=== PATIENT | male | born 1965 | race Caucasian/White ===

== ENCOUNTER 2023-03-20 12:35 | Outpatient (CLI) | payer OTHER, SELFPAY ==
[2023-03-20 11:37] LABS: Abs Immature Grans 0.06 10^3/uL (0.0-0.06); Absolute Basophil Count 0.07 10^3/uL (0.0-0.2); Absolute Eosinophil Count 0.09 10^3/uL (0.0-0.7); Absolute Lymphocyte Count 3.01 10^3/uL (1.2-3.4); Absolute Monocyte Count 0.97 10^3/uL (0.1-0.8); Basophils % 0.6; Eosinophils % 0.8; HCT 51.9 % (40.0-50.0); HGB 17.1 g/dL (13.5-17.5); Immature Grans % 0.5; Lymphocytes % 25.8; MCH 27.9 pg (27.0-33.0); MCHC 32.9 % (32.0-36.0); MCV 85 fL (80-95); MPV 9.7 fL (8.0-11.0); Monocytes % 8.3; Platelet Count 301 10^3/uL (130-400); RBC 6.12 10^6/uL (4.36-5.78); RDW 14.3 % (11.8-14.1); RDW-SD 43.8 fL; WBC 11.65 10^3/uL (4.4-10.8)
[2023-03-20 11:41] LABS: Absolute Neutrophil Count 7.46 10^3/uL (1.2-6.7)
[2023-03-20 11:53] LABS: Hemoglobin A1C 8.3 % (<5.7)
[2023-03-20 11:57] LABS: ALT 24 U/L (16-63); AST 11 U/L (15-37); Albumin 3.4 g/dL (3.4-5.0); Alkaline Phosphatase 99 U/L (46-116); Anion Gap 9.1 mmol/L (3-11); BUN 10 mg/dL (7-18); Bilirubin, Total 0.3 mg/dL (0.2-1.0); CO2 26.9 mmol/L (21.0-32.0); CREATININE 0.8 mg/dL (0.70-1.30); Calcium 9.4 mg/dL (8.5-10.1); Chloride 100 mmol/L (98-107); Estimated GFR 103.87 (mL/min/1.73m2); Glucose 179 mg/dL (74-106); Potassium 4.1 mmol/L (3.5-5.1); Sodium 136 mmol/L (136-145); Total Protein 7.9 g/dL (6.4-8.2)
[2023-03-20 12:12] LABS: Diff Comment Diff Reviewed; RBC Morphology Normal
== END 2023-03-20 12:36 | disposition home or self-care (01) ==
LOC: LBO 12:37
PROVIDERS: PCP Internal Medicine Hematology & Oncology; Visit Provider Internal Medicine Hematology & Oncology
DX: C32.9 Malignant neoplasm of larynx, unspecified (principal); E11.9 Type 2 diabetes mellitus without complications
CPT/HCPCS: 36415; 80053; 83036; 83735; 85025

== ENCOUNTER 2023-03-30 16:28 | Outpatient (REF) | payer OTHER, SELFPAY ==
[2023-03-30 16:37] LABS: Abs Immature Grans 0.08 10^3/uL (0.0-0.06); Absolute Eosinophil Count 0.08 10^3/uL (0.0-0.7); Absolute Lymphocyte Count 2.32 10^3/uL (1.2-3.4); Basophils % 0.3; Eosinophils % 0.5; HCT 52.4 % (40.0-50.0); HGB 17.4 g/dL (13.5-17.5); Immature Grans % 0.5; Lymphocytes % 14.7; MCH 28.3 pg (27.0-33.0); MCHC 33.2 % (32.0-36.0); MCV 85 fL (80-95); MPV 10.6 fL (8.0-11.0); Monocytes % 8.2; Neutrophils % 75.8; Platelet Count 303 10^3/uL (130-400); RBC 6.15 10^6/uL (4.36-5.78); RDW 14.5 % (11.8-14.1); RDW-SD 44.7 fL; WBC 15.81 10^3/uL (4.4-10.8)
[2023-03-30 16:38] LABS: Absolute Basophil Count 0.05 10^3/uL (0.0-0.2); Absolute Neutrophil Count 11.98 10^3/uL (1.2-6.7)
[2023-03-30 16:49] LABS: ALT 24 U/L (16-63); AST 9 U/L (15-37); Albumin 3.3 g/dL (3.4-5.0); Alkaline Phosphatase 94 U/L (46-116); Anion Gap 11.6 mmol/L (3-11); BUN 18 mg/dL (7-18); Bilirubin, Total 0.3 mg/dL (0.2-1.0); CO2 21.4 mmol/L (21.0-32.0); CREATININE 0.9 mg/dL (0.70-1.30); Calcium 8.9 mg/dL (8.5-10.1); Chloride 99 mmol/L (98-107); Diff Comment Diff Reviewed; Estimated GFR 100.24 (mL/min/1.73m2); Glucose 389 mg/dL (74-106); Potassium 3.6 mmol/L (3.5-5.1); RBC Morphology Normal; Sodium 132 mmol/L (136-145); Total Protein 7.7 g/dL (6.4-8.2)
[2023-03-30 17:01] LABS: Hemoglobin A1C 8.5 % (<5.7)
== END 2023-03-30 16:29 | disposition home or self-care (01) ==
LOC: LBN 16:28
PROVIDERS: PCP Internal Medicine Hematology & Oncology; Visit Provider Internal Medicine Hematology & Oncology
DX: C32.9 Malignant neoplasm of larynx, unspecified (principal); E11.9 Type 2 diabetes mellitus without complications
CPT/HCPCS: 80053; 83036; 83735; 85025

== ENCOUNTER 2023-05-04 02:57 | Outpatient (RCR) | payer OTHER, SELFPAY ==
[2023-04-06] MEDS: Normal Saline Flush 10 ML SYR IVP (09:27)
[2023-04-06 10:03] LABS: Abs Immature Grans 0.04 10^3/uL (0.0-0.06); Absolute Basophil Count 0.02 10^3/uL (0.0-0.2); Absolute Eosinophil Count 0.04 10^3/uL (0.0-0.7); Absolute Lymphocyte Count 1.76 10^3/uL (1.2-3.4); Absolute Monocyte Count 0.94 10^3/uL (0.1-0.8); Basophils % 0.2; Eosinophils % 0.4; HCT 52.7 % (40.0-50.0); HGB 17.3 g/dL (13.5-17.5); Immature Grans % 0.4; Lymphocytes % 16.2; MCH 28.1 pg (27.0-33.0); MCHC 32.8 % (32.0-36.0); MCV 86 fL (80-95); MPV 10.4 fL (8.0-11.0); Monocytes % 8.6; Neutrophils % 74.2; Platelet Count 259 10^3/uL (130-400); RBC 6.16 10^6/uL (4.36-5.78); WBC 10.89 10^3/uL (4.4-10.8)
[2023-04-06 10:06] LABS: Absolute Neutrophil Count 8.08 10^3/uL (1.2-6.7)
[2023-04-06 10:27] LABS: ALT 39 U/L (16-63); AST 12 U/L (15-37); Albumin 3.1 g/dL (3.4-5.0); Alkaline Phosphatase 84 U/L (46-116); Anion Gap 8.5 mmol/L (3-11); BUN 25 mg/dL (7-18); Bilirubin, Total 0.3 mg/dL (0.2-1.0); CO2 26.5 mmol/L (21.0-32.0); CREATININE 0.9 mg/dL (0.70-1.30); Chloride 99 mmol/L (98-107); Estimated GFR 100.24 (mL/min/1.73m2); Glucose 220 mg/dL (74-106); Magnesium 1.7 mg/dL (1.8-2.4); Potassium 3.9 mmol/L (3.5-5.1); Sodium 134 mmol/L (136-145); Total Protein 7.2 g/dL (6.4-8.2)
[2023-04-13] MEDS: Normal Saline Flush 10 ML SYR IVP (14:57)
[2023-04-13 15:33] LABS: ALT 38 U/L (16-63); AST 17 U/L (15-37); Albumin 3.3 g/dL (3.4-5.0); Alkaline Phosphatase 107 U/L (46-116); Anion Gap 10.5 mmol/L (3-11); BUN 14 mg/dL (7-18); Bilirubin, Total 0.2 mg/dL (0.2-1.0); CO2 24.5 mmol/L (21.0-32.0); CREATININE 0.8 mg/dL (0.70-1.30); Calcium 9.1 mg/dL (8.5-10.1); Chloride 100 mmol/L (98-107); Estimated GFR 103.87 (mL/min/1.73m2); Glucose 240 mg/dL (74-106); Magnesium 1.9 mg/dL (1.8-2.4); Potassium 4.2 mmol/L (3.5-5.1); Sodium 135 mmol/L (136-145); Total Protein 7.9 g/dL (6.4-8.2)
[2023-04-13 15:39] LABS: Abs Immature Grans 0.04 10^3/uL (0.0-0.06); Absolute Basophil Count 0.04 10^3/uL (0.0-0.2); Absolute Eosinophil Count 0.06 10^3/uL (0.0-0.7); Absolute Lymphocyte Count 1.37 10^3/uL (1.2-3.4); Absolute Neutrophil Count 8.29 10^3/uL (1.2-6.7); Basophils % 0.4; Eosinophils % 0.6; HCT 52.3 % (40.0-50.0); HGB 17.2 g/dL (13.5-17.5); Immature Grans % 0.4; Lymphocytes % 12.9; MCHC 32.9 % (32.0-36.0); MCV 85 fL (80-95); MPV 9.2 fL (8.0-11.0); Monocytes % 7.5; Neutrophils % 78.2; Platelet Count 203 10^3/uL (130-400); RBC 6.14 10^6/uL (4.36-5.78); RDW 14.6 % (11.8-14.1)
[2023-04-13 15:40] LABS: Diff Comment Diff Reviewed
[2023-04-13 15:41] LABS: RBC Morphology Normal
[2023-04-20] MEDS: Normal Saline Flush 10 ML SYR IVP (14:00)
[2023-04-20 14:05] LABS: Abs Immature Grans 0.04 10^3/uL (0.0-0.06); Absolute Basophil Count 0.02 10^3/uL (0.0-0.2); Absolute Eosinophil Count 0.08 10^3/uL (0.0-0.7); Absolute Lymphocyte Count 1.32 10^3/uL (1.2-3.4); Absolute Monocyte Count 0.95 10^3/uL (0.1-0.8); Absolute Neutrophil Count 5.52 10^3/uL (1.2-6.7); Basophils % 0.3; Immature Grans % 0.5; Lymphocytes % 16.6; MCH 28.2 pg (27.0-33.0); MCHC 33.3 % (32.0-36.0); MCV 85 fL (80-95); MPV 9.1 fL (8.0-11.0); Neutrophils % 69.6; Platelet Count 233 10^3/uL (130-400); RDW 14.2 % (11.8-14.1); RDW-SD 43.4 fL; WBC 7.93 10^3/uL (4.4-10.8)
[2023-04-20 14:07] LABS: RBC 6.03 10^6/uL (4.36-5.78)
[2023-04-20 15:44] LABS: ALT 35 U/L (16-63); AST 18 U/L (15-37); Albumin 3.4 g/dL (3.4-5.0); Alkaline Phosphatase 113 U/L (46-116); Anion Gap 9.8 mmol/L (3-11); BUN 15 mg/dL (7-18); Bilirubin, Total 0.3 mg/dL (0.2-1.0); CO2 25.2 mmol/L (21.0-32.0); CREATININE 0.8 mg/dL (0.70-1.30); Calcium 9.9 mg/dL (8.5-10.1); Chloride 99 mmol/L (98-107); Estimated GFR 103.87 (mL/min/1.73m2); Glucose 138 mg/dL (74-106); Potassium 3.8 mmol/L (3.5-5.1); Sodium 134 mmol/L (136-145); Total Protein 8.1 g/dL (6.4-8.2)
[2023-04-27] MEDS: Normal Saline Flush 10 ML SYR IVP (13:27)
[2023-04-27 13:41] LABS: Abs Immature Grans 0.04 10^3/uL (0.0-0.06); Absolute Basophil Count 0.02 10^3/uL (0.0-0.2); Absolute Eosinophil Count 0.02 10^3/uL (0.0-0.7); Absolute Lymphocyte Count 0.71 10^3/uL (1.2-3.4); Absolute Monocyte Count 0.99 10^3/uL (0.1-0.8); Basophils % 0.2; Eosinophils % 0.2; HCT 51.1 % (40.0-50.0); HGB 17.6 g/dL (13.5-17.5); Immature Grans % 0.5; Lymphocytes % 8.3; MCH 28.5 pg (27.0-33.0); MCHC 34.4 % (32.0-36.0); MCV 83 fL (80-95); MPV 9.9 fL (8.0-11.0); Monocytes % 11.5; Neutrophils % 79.3; Platelet Count 192 10^3/uL (130-400); RBC 6.18 10^6/uL (4.36-5.78); RDW 13.4 % (11.8-14.1); RDW-SD 41.1 fL; WBC 8.58 10^3/uL (4.4-10.8)
[2023-04-27 14:01] LABS: ALT 68 U/L (16-63); AST 32 U/L (15-37); Albumin 3.2 g/dL (3.4-5.0); Alkaline Phosphatase 98 U/L (46-116); BUN 21 mg/dL (7-18); Bilirubin, Total 0.5 mg/dL (0.2-1.0); CREATININE 0.9 mg/dL (0.70-1.30); Calcium 8.9 mg/dL (8.5-10.1); Chloride 98 mmol/L (98-107); Estimated GFR 100.24 (mL/min/1.73m2); Glucose 152 mg/dL (74-106); Magnesium 1.7 mg/dL (1.8-2.4); Potassium 3.3 mmol/L (3.5-5.1); Sodium 135 mmol/L (136-145); Total Protein 7.7 g/dL (6.4-8.2)
[2023-05-04] MEDS: Normal Saline Flush 10 ML SYR IVP (12:51)
[2023-05-04 13:19] LABS: Abs Immature Grans 0.04 10^3/uL (0.0-0.06); Absolute Basophil Count 0.02 10^3/uL (0.0-0.2); Absolute Eosinophil Count 0.02 10^3/uL (0.0-0.7); Absolute Lymphocyte Count 0.74 10^3/uL (1.2-3.4); Absolute Monocyte Count 0.98 10^3/uL (0.1-0.8); Absolute Neutrophil Count 7.58 10^3/uL (1.2-6.7); Basophils % 0.2; Eosinophils % 0.2; HCT 47.8 % (40.0-50.0); HGB 15.9 g/dL (13.5-17.5); Immature Grans % 0.4; Lymphocytes % 7.9; MCH 27.7 pg (27.0-33.0); MCHC 33.3 % (32.0-36.0); MCV 83 fL (80-95); MPV 9.4 fL (8.0-11.0); Monocytes % 10.4; Neutrophils % 80.9; Platelet Count 193 10^3/uL (130-400); RBC 5.75 10^6/uL (4.36-5.78); RDW 13.9 % (11.8-14.1); RDW-SD 41.6 fL; WBC 9.38 10^3/uL (4.4-10.8)
[2023-05-04 13:30] LABS: ALT 37 U/L (16-63); AST 20 U/L (15-37); Albumin 3.1 g/dL (3.4-5.0); Alkaline Phosphatase 112 U/L (46-116); Anion Gap 11.7 mmol/L (3-11); BUN 14 mg/dL (7-18); Bilirubin, Total 0.5 mg/dL (0.2-1.0); CO2 27.3 mmol/L (21.0-32.0); CREATININE 0.8 mg/dL (0.70-1.30); Calcium 9.1 mg/dL (8.5-10.1); Chloride 100 mmol/L (98-107); Estimated GFR 103.87 (mL/min/1.73m2); Glucose 131 mg/dL (74-106); Magnesium 1.4 mg/dL (1.8-2.4); Potassium 3.1 mmol/L (3.5-5.1); Sodium 139 mmol/L (136-145); Total Protein 7.6 g/dL (6.4-8.2)
== END 2023-05-05 23:59 | disposition home or self-care (01) ==
LOC: INF 02:57
PROVIDERS: PCP Internal Medicine Hematology & Oncology; Visit Provider Internal Medicine Hematology & Oncology
DX: C32.9 Malignant neoplasm of larynx, unspecified (principal); Z45.2 Encounter for adjustment and management of vascular access device
CPT/HCPCS: 36591; 80053; 83735; 85025